=== PATIENT | female | born 1965 | race Caucasian/White ===

== ENCOUNTER 2018-03-13 08:13 | Observation (INO) | payer OTHER ==
[2018-03-13] MEDS ORDERED: Ondansetron 4 MG Tab.DIS PO ONE (08:29)
[2018-03-13] MEDS ORDERED: Morphine 4 MG/ML Syringe IVPUSH ONE (08:29)
[2018-03-13] MEDS ORDERED: Sodium Chloride 0.9% 1,000 ML IV ONE (08:29)
[2018-03-13] MEDS ORDERED: Sodium Chloride 0.9% 2.5 ML Syringe FLUSH PRN ×2 (08:29→12:34)
[2018-03-13] MEDS ORDERED: Sodium Chloride 0.9% 10 ML Syringe FLUSH PRN ×2 (08:29→12:34)
--- NOTE | 2018-03-13 08:32 | EDM.PDOC ---
ED HPI GENERAL MEDICAL PROBLEM - General Stated Complaint: STOMACH PAIN ISSUES Time Seen by Provider: 03/13/18 08:24 Source of Information: Reports: Patient History Limitations: Reports: No Limitations - History of Present Illness INITIAL COMMENTS - FREE TEXT/NARRATIVE: History of present illness: []Patient has been having upper abdominal pain radiating around her whole trunk is worse on the right side for the last month 1-2 months. It's been intermittent and she has gone to her doctor is Esequiel for evaluation. She was told that if the pain recurs she is to go to a doctor. Sensation is here visiting her who works in the [employer]. She awoke this morning and ate breakfast before taking her diabetic meds and then developed the pain. She is nauseated and has had some fevers and chills. She denies any diarrhea. Patient has had her tubes tied she currently does have her gallbladder. Review of systems: As per history of present illness and below otherwise all systems reviewed and negative. Past medical history: As per history of present illness and as reviewed below otherwise noncontributory. Surgical history: As per history of present illness and as reviewed below otherwise noncontributory. Social history: No reported history of drug or alcohol abuse. Family history: As per history of present illness and as reviewed below otherwise noncontributory. Physical exam: General: Well developed, well nourished in NAD HEENT: Atraumatic, normocephalic, pupils reactive, negative for conjunctival pallor or scleral icterus, mucous membranes moist, throat clear, neck supple, nontender, trachea midline. Lungs: Clear to auscultation, breath sounds equal bilaterally, chest nontender. Heart: S1S2, regular, negative for clicks, rubs, or JVD. Abdomen: Soft, nondistended, tender upper abdomen or severe on the right without rebound or guarding. Negative for masses or hepatosplenomegaly. Negative for costovertebral tenderness. Pelvis: Stable nontender. Genitourinary: Deferred. Rectal: Deferred. Extremities: Atraumatic, negative for cords or calf pain. Neurovascular unremarkable. Neuro: Awake, alert, oriented. Cranial nerves II through XII unremarkable. Cerebellum unremarkable. Motor and sensory unremarkable throughout. Exam nonfocal. Diagnostics: CBC normal, chemistries normal, LFTs AST and ALTs slightly elevated at 140/120, UA negative, negative, CT scan abdomen shows acute cholecystitis Therapeutics: []IV hydration, Zosyn given in the ED Impression: []Acute cholecystitis Plan: []Dr. Springer consulted she is admitting this patient for IV antibiotics and observation. Definitive disposition and diagnosis as appropriate pending reevaluation and review of above. - Related Data Allergies Allergy/AdvReac Type Severity Reaction Status Date / Time No Known Allergies Allergy Verified 03/13/18 08:39 Home Meds: Home Meds Levothyroxine 125 mcg PO ACBREAKFAST 03/13/18 [History] Lisinopril [Zestril] 40 mg PO DAILY 03/13/18 [History] Metoprolol Tartrate [Lopressor] 50 mg PO BID 03/13/18 [History] metFORMIN HCl [Metformin HCl ER] 2 tab PO BID 03/13/18 [History] ED ROS GENERAL - Review of Systems Review Of Systems: See Below (See history of present illness) ED EXAM, GI/ABD - Physical Exam Exam: See Below (See history of present illness) Course - Vital Signs Last Recorded V/S: Last Vital Signs Temp 98.2 F 03/13/18 15:36 Pulse 61 03/13/18 15:36 Resp 16 03/13/18 15:36 BP 173/93 H 03/13/18 15:36 Pulse Ox 97 03/13/18 15:36 - Orders/Labs/Meds Orders: Active Orders 24 hr Category Date Time Status Patient Status [ADT] Routine ADT 03/13/18 12:34 Active Intake and Output [RC] Q12HR Care 03/13/18 12:39 Active RT Incentive Spirometry [RC] ASDIRECTED Care 03/13/18 12:34 Active Up ad Mis [RC] ASDIRECTED Care 03/13/18 12:34 Active Vital Signs [RC] PER UNIT ROUTINE Care 03/13/18 12:34 Active HCG QUALITATIVE,URINE [URCHEM] Stat Lab 03/13/18 08:45 Ordered UA W/MICROSCOPIC [URIN] Stat Lab 03/13/18 08:45 Ordered Acetaminophen/oxyCODONE [Percocet 325-5 MG] Med 03/13/18 12:34 Active 2 tab PO Q4H PRN Lactated Ringers [Ringers, Lactated] 1,000 ml Med 03/13/18 12:45 Active IV ASDIRECTED Morphine Med 03/13/18 12:34 Active 4 mg IVPUSH Q1H PRN Omeprazole Med 03/14/18 07:30 Active 20 mg PO ACBREAKFAST Ondansetron [Zofran] Med 03/13/18 12:34 Active 4 mg IVPUSH Q6H PRN Piperacillin/Tazobactam [Piperacil-Tazobact] 3.375 gm Med 03/13/18 18:00 Active Sodium Chloride 0.9% [Normal Saline] 50 ml IV Q8H Sodium Chloride 0.9% [Saline Flush] Med 03/13/18 08:29 Active 10 ml FLUSH ASDIRECTED PRN Sodium Chloride 0.9% [Saline Flush] Med 03/13/18 12:34 Active 10 ml FLUSH ASDIRECTED PRN Sodium Chloride 0.9% [Saline Flush] Med 03/13/18 08:29 Active 2.5 ml FLUSH ASDIRECTED PRN Sodium Chloride 0.9% [Saline Flush] Med 03/13/18 12:34 Active 2.5 ml FLUSH ASDIRECTED PRN diphenhydrAMINE [Benadryl] Med 03/13/18 12:34 Active 25 mg IVPUSH Q4H PRN Peripheral IV Insertion Adult [OM.PC] Urgent Oth 03/13/18 12:34 Ordered Saline Lock Insert [OM.PC] Stat Oth 03/13/18 08:29 Ordered Resuscitation Status Routine Resus Stat 03/13/18 12:34 Ordered Medication Orders Hydrocodone Bitart/Acetaminophen ([place] 325-5 Mg) 2 tab PO Q4H PRN PRN Reason: Abdominal Pain Diphenhydramine HCl (Benadryl) 25 mg IVPUSH Q4H PRN PRN Reason: Itching Lactated Ringer's (Ringers, Lactated) 1,000 mls @ 125 mls/hr IV ASDIRECTED CHILANGO Last Admin: 03/13/18 12:57 Dose: 125 mls/hr Piperacillin Sod/Tazobactam (Sod 3.375 gm/ Sodium Chloride) 50 mls @ 100 mls/ hr IV Q8H CHILANGO Last Admin: 03/13/18 17:36 Dose: 100 mls/hr Morphine Sulfate (Morphine) 4 mg IVPUSH Q1H PRN PRN Reason: Pain (severe 7-10) Last Admin: 03/13/18 17:55 Dose: 4 mg Omeprazole (Omeprazole) 20 mg PO ACBREAKFAST CHILANGO Ondansetron HCl (Zofran) 4 mg IVPUSH Q6H PRN PRN Reason: Nausea/Vomiting Ondansetron HCl (Zofran Odt) 4 mg PO Q6H PRN PRN Reason: Nausea/Vomiting Last Admin: 03/13/18 17:35 Dose: 4 mg Oxycodone/Acetaminophen (Percocet 325-5 Mg) 2 tab PO Q4H PRN PRN Reason: Pain (moderate 4-6) Sodium Chloride (Saline Flush) 10 ml FLUSH ASDIRECTED PRN PRN Reason: Keep Vein Open Sodium Chloride (Saline Flush) 2.5 ml FLUSH ASDIRECTED PRN PRN Reason: Keep Vein Open Sodium Chloride (Saline Flush) 10 ml FLUSH ASDIRECTED PRN PRN Reason: Keep Vein Open Sodium Chloride (Saline Flush) 2.5 ml FLUSH ASDIRECTED PRN PRN Reason: Keep Vein Open Labs: Laboratory Tests 03/13/18 03/13/18 03/13/18 Range/Units 08:45 08:45 09:07 WBC 4.87 (4.0-11.0) K/uL RBC 4.54 (4.30-5.90) M/uL Hgb 13.7 (12.0-16.0) g/dL Hct 39.4 (36.0-46.0) % MCV 86.8 (80.0-98.0) fL MCH 30.2 (27.0-32.0) pg MCHC 34.8 (31.0-37.0) g/dL RDW Std Deviation 40.2 (28.0-62.0) fl RDW Coeff of Randal 13 (11.0-15.0) % Plt Count 209 (150-400) K/uL MPV 10.90 (7.40-12.00) fL Neut % (Auto) 52.6 (48.0-80.0) % Lymph % (Auto) 33.9 (16.0-40.0) % [place] % (Auto) 11.5 (0.0-15.0) % Eos % (Auto) 1.6 (0.0-7.0) % Baso % (Auto) 0.4 (0.0-1.5) % Neut # (Auto) 2.6 (1.4-5.7) K/uL Lymph # (Auto) 1.7 (0.6-2.4) K/uL [place] # (Auto) 0.6 (0.0-0.8) K/uL Eos # (Auto) 0.1 (0.0-0.7) K/uL Baso # (Auto) 0.0 (0.0-0.1) K/uL Nucleated RBC % 0.0 /100WBC Nucleated RBCs # 0 K/uL Sodium (136-145) mmol/L Potassium (3.5-5.1) mmol/L Chloride (98-107) mmol/L Carbon Dioxide (21.0-32.0) mmol/L BUN (7.0-18.0) mg/dL Creatinine (0.6-1.0) mg/dL Est Cr Clr Drug Dosing mL/min Estimated GFR (MDRD) ml/min Glucose (74-106) mg/dL Calcium (8.5-10.1) mg/dL Total Bilirubin (0.2-1.0) mg/dL AST (15-37) IU/L ALT (14-63) IU/L Alkaline Phosphatase (46-116) U/L Total Protein (6.4-8.2) g/dL Albumin (3.4-5.0) g/dL Globulin (2.0-3.5) g/dL Albumin/Globulin Ratio (1.3-2.8) Lipase (73-393) U/L Urine Color YELLOW Urine Appearance CLEAR Urine pH 5.5 (5.0-8.0) Ur Specific [place] 1.010 (1.001-1.035) Urine Protein NEGATIVE (NEGATIVE) mg/dL Urine Glucose (UA) NEGATIVE (NEGATIVE) mg/dL Urine Ketones NEGATIVE (NEGATIVE) mg/dL Urine Occult Blood NEGATIVE (NEGATIVE) Urine Nitrite NEGATIVE (NEGATIVE) Urine Bilirubin NEGATIVE (NEGATIVE) Urine Urobilinogen 0.2 (<2.0) EU/dL Ur Leukocyte Esterase NEGATIVE (NEGATIVE) Urine RBC 0-1 (0-2/HPF) Urine WBC 0-2 (0-5/HPF) Ur Epithelial Cells MODERATE (NONE-FEW) Amorphous Sediment MODERATE (NEGATIVE) Urine Bacteria FEW (NEGATIVE) Urine HCG, Qual NEGATIVE (NEGATIVE) 03/13/18 Range/Units 09:07 WBC (4.0-11.0) K/uL RBC (4.30-5.90) M/uL Hgb (12.0-16.0) g/dL Hct (36.0-46.0) % MCV (80.0-98.0) fL MCH (27.0-32.0) pg MCHC (31.0-37.0) g/dL RDW Std Deviation (28.0-62.0) fl RDW Coeff of Randal (11.0-15.0) % Plt Count (150-400) K/uL MPV (7.40-12.00) fL Neut % (Auto) (48.0-80.0) % Lymph % (Auto) (16.0-40.0) % [place] % (Auto) (0.0-15.0) % Eos % (Auto) (0.0-7.0) % Baso % (Auto) (0.0-1.5) % Neut # (Auto) (1.4-5.7) K/uL Lymph # (Auto) (0.6-2.4) K/uL [place] # (Auto) (0.0-0.8) K/uL Eos # (Auto) (0.0-0.7) K/uL Baso # (Auto) (0.0-0.1) K/uL Nucleated RBC % /100WBC Nucleated RBCs # K/uL Sodium 143 (136-145) mmol/L Potassium 4.6 (3.5-5.1) mmol/L Chloride 107 (98-107) mmol/L Carbon Dioxide 24.7 (21.0-32.0) mmol/L BUN 12 (7.0-18.0) mg/dL Creatinine 0.9 (0.6-1.0) mg/dL Est Cr Clr Drug Dosing 75.44 mL/min Estimated GFR (MDRD) > 60.0 ml/min Glucose 130 H (74-106) mg/dL Calcium 9.9 (8.5-10.1) mg/dL Total Bilirubin 0.8 (0.2-1.0) mg/dL AST 164 H (15-37) IU/L ALT 140 H (14-63) IU/L Alkaline Phosphatase 62 (46-116) U/L Total Protein 7.5 (6.4-8.2) g/dL Albumin 4.3 (3.4-5.0) g/dL Globulin 3.2 (2.0-3.5) g/dL Albumin/Globulin Ratio 1.3 (1.3-2.8) Lipase 214 (73-393) U/L Urine Color Urine Appearance Urine pH (5.0-8.0) Ur Specific [place] (1.001-1.035) Urine Protein (NEGATIVE) mg/dL Urine Glucose (UA) (NEGATIVE) mg/dL Urine Ketones (NEGATIVE) mg/dL Urine Occult Blood (NEGATIVE) Urine Nitrite (NEGATIVE) Urine Bilirubin (NEGATIVE) Urine Urobilinogen (<2.0) EU/dL Ur Leukocyte Esterase (NEGATIVE) Urine RBC (0-2/HPF) Urine WBC (0-5/HPF) Ur Epithelial Cells (NONE-FEW) Amorphous Sediment (NEGATIVE) Urine Bacteria (NEGATIVE) Urine HCG, Qual (NEGATIVE) Meds: Medications Generic Name Dose Route Start Last Admin Trade Name Freq PRN Reason Stop Dose Admin Hydrocodone Bitart/Acetaminophen 2 tab 03/13/18 17:10 [place] 325-5 Mg PO Q4H PRN Abdominal Pain Diphenhydramine HCl 25 mg 03/13/18 12:34 Benadryl IVPUSH Q4H PRN Itching Lactated Ringer's 1,000 mls @ 125 mls/hr 03/13/18 12:45 03/13/18 12:57 Ringers, Lactated IV 125 mls/hr ASDIRECTED CHILANGO Administration Piperacillin Sod/Tazobactam 50 mls @ 100 mls/hr 03/13/18 18:00 03/13/18 17:36 Sod 3.375 gm/ Sodium Chloride IV 100 mls/hr Q8H CHILANGO Administration Morphine Sulfate 4 mg 03/13/18 12:34 03/13/18 17:55 Morphine IVPUSH 4 mg Q1H PRN Administration Pain (severe 7-10) Omeprazole 20 mg 03/14/18 07:30 Omeprazole PO ACBREAKFAST CHILANGO Ondansetron HCl 4 mg 03/13/18 12:34 Zofran IVPUSH Q6H PRN Nausea/Vomiting Ondansetron HCl 4 mg 03/13/18 17:10 03/13/18 17:35 Zofran Odt PO 4 mg Q6H PRN Administration Nausea/Vomiting Oxycodone/Acetaminophen 2 tab 03/13/18 12:34 Percocet 325-5 Mg PO Q4H PRN Pain (moderate 4-6) Sodium Chloride 10 ml 03/13/18 08:29 Saline Flush FLUSH ASDIRECTED PRN Keep Vein Open Sodium Chloride 2.5 ml 03/13/18 08:29 Saline Flush FLUSH ASDIRECTED PRN Keep Vein Open Sodium Chloride 10 ml 03/13/18 12:34 Saline Flush FLUSH ASDIRECTED PRN Keep Vein Open Sodium Chloride 2.5 ml 03/13/18 12:34 Saline Flush FLUSH ASDIRECTED PRN Keep Vein Open Discontinued Medications Generic Name Dose Route Start Last Admin Trade Name Freq PRN Reason Stop Dose Admin Sodium Chloride 1,000 mls @ 999 mls/hr 03/13/18 08:29 03/13/18 09:16 Normal Saline IV 03/13/18 09:29 999 mls/hr .Bolus ONE Administration Piperacillin Sod/Tazobactam 100 mls @ 100 mls/hr 03/13/18 11:57 03/13/18 12: 24 Sod 4.5 gm/ Sodium Chloride IV 03/13/18 12:56 100 mls/hr ONETIME ONE Administration Iopamidol 85 ml 03/13/18 11:28 03/13/18 11:29 Isovue-370 (76%) IVPUSH 03/13/18 11:29 85 ml ONETIME ONE Administration Morphine Sulfate 4 mg 03/13/18 08:29 03/13/18 09:20 Morphine IVPUSH 03/13/18 08:30 4 mg ONETIME ONE Administration Morphine Sulfate Confirm 03/13/18 08:49 03/13/18 09:20 Morphine Administered 03/13/18 08:50 Not Given Dose 4 mg .ROUTE .STK-MED ONE Ondansetron HCl 4 mg 03/13/18 08:29 03/13/18 09:18 Zofran Odt PO 03/13/18 08:30 4 mg ONETIME ONE Administration Departure - Departure Time of Disposition: 13:30 Disposition: Refer to Observation Condition: Good Clinical Impression: Acute cholecystitis - Discharge Information - My Orders Last 24 Hours: My Active Orders 03/13/18 08:29 Sodium Chloride 0.9% [Saline Flush] 10 ml FLUSH ASDIRECTED PRN Sodium Chloride 0.9% [Saline Flush] 2.5 ml FLUSH ASDIRECTED PRN Saline Lock Insert [OM.PC] Stat 03/13/18 08:45 HCG QUALITATIVE,URINE [URCHEM] Stat UA W/MICROSCOPIC [URIN] Stat - Assessment/Plan Last 24 Hours: My Active Orders 03/13/18 08:29 Sodium Chloride 0.9% [Saline Flush] 10 ml FLUSH ASDIRECTED PRN Sodium Chloride 0.9% [Saline Flush] 2.5 ml FLUSH ASDIRECTED PRN Saline Lock Insert [OM.PC] Stat 03/13/18 08:45 HCG QUALITATIVE,URINE [URCHEM] Stat UA W/MICROSCOPIC [URIN] Stat
[2018-03-13] MEDS ORDERED: Morphine 2 MG/ML Syringe ONE (08:49)
[2018-03-13 09:49] LABS: CHLORIDE,CL 107 mmol/L (98-107); SODIUM,NA 143 mmol/L (136-145)
[2018-03-13] MEDS ORDERED: Iopamidol 755 Mg/ML 100 ML Bottle IVPUSH ONE (11:28)
--- NOTE | 2018-03-13 11:44 | CT ---
CT of the abdomen and pelvis with contrast. HISTORY: Pain TECHNIQUE: Axial CT images were obtained of the abdomen and pelvis following administration of 85 mL of Isovue-370 in the right hand without complication. Coronal and sagittal reconstructions obtained. FINDINGS: The lung bases are clear, no pleural effusion. A few tiny hypodensities within the liver, too small for characterize, likely representing cysts. The spleen is normal. Adrenal glands and pancreas appear unremarkable. Mild prominence of the intra and extrahepatic biliary ducts with the common bile duct measuring up to 7 mm. There is mild gallbladder wall thickening and a trace pericholecystic stranding. There is a possible tiny filling defect within the cystic duct. The kidneys enhance and function symmetrically without evidence of obstructive uropathy. Renal cysts. The large and small bowel are normal in caliber without evidence of obstruction. No focal pericolonic inflammation or stranding. The appendix is normal. No pelvic lymphadenopathy or free pelvic fluid. T he uterus is heterogeneous likely containing a 2.9 x 3.8 posterior uterine fibroid. Urinary bladder i s normal. No suspicious osseous abnormalities identified. IMPRESSION: 1. Gallbladder wall thickening and pericholecystic stranding within possible tiny gallstone within th e cystic duct. Correlate clinically for acute cholecystitis. 2. Mild prominence of the anterior and extrahepatic biliary ducts also noted. 3. Uterine fibroids.
[2018-03-13] MEDS ORDERED: Piperacillin/Tazobactam 4.5 GM in Sodium Chloride 0.9% 100 ML IV ONE (11:57)
[2018-03-13] MEDS ORDERED: Ondansetron 4 MG/2 ML SDV IVPUSH PRN (12:34)
[2018-03-13] MEDS ORDERED: Morphine 4 MG/ML Syringe IVPUSH PRN (12:34)
[2018-03-13] MEDS ORDERED: Acetaminophen/oxyCODONE 325-5 MG Tab PO PRN (12:34)
[2018-03-13] MEDS ORDERED: diphenhydrAMINE 50 MG/ML SDV IVPUSH PRN (12:34)
[2018-03-13] MEDS: Lactated Ringers 1,000 ML IV SCH ×2 (12:57→21:31)
--- NOTE | 2018-03-13 13:12 | US ---
EXAMINATION: Right upper quadrant ultrasound HISTORY: Acute cholecystitis COMPARISON: CT from the same day TECHNIQUE: Grayscale and color Doppler images obtained of the right upper quadrant. FINDINGS: Visualized pancreas appears normal. Overall the liver is normal in contour and echotexture. There are a few small hyperechoic foci within the liver measuring up to 1.3 cm consistent with small hemangiomas. The gallbladder is partially contracted and overall not optimally evaluated. The gallbl adder wall measures up to 3 mm no definite shadowing stone identified. Common bile duct measures 2 mm . Right kidney measures 10.1 cm [id number] without evidence of hydronephrosis. IMPRESSION: 1. Gallbladder wall thickness is borderline at 3 mm however there is difficult to fully characterize due to the partially contracted. 2. Probable hemangiomas noted within the liver.
--- NOTE | 2018-03-13 13:51 | PCM.HP ---
H&P History of Present Illness - General Date of Service: 03/13/18 Admit Problem/Dx: Admission Diagnosis/Problem Admission Diagnosis/Problem Acute cholecystitis Source of Information: Patient History Limitations: Reports: No Limitations - History of Present Illness Initial Comments - Free Text/Narative: Patient is a 52 year old female who has been having intermittent epigastric and RUQ pain for 1-2 months. Last saturday she ate a meal and had RUQ pain for six hours afterwards. The pain resolved and she didnt have any further pain until this morning. She had acute RUQ pain after breakfast. This radiated around her upper abdomen and to her back. She had nausea but did not vomit. She felt diaphoretic. Her CBC was normal. Her AST and ALT were mildly elevated. A CT of the abdomen showed questionable thickened GB wall and romeo-cholecystic fluid. There was a gallstone in the neck of the GB. The radiologist said to clinically correlate for acute cholecystitis. She had a RUQ US that showed a 3mm gallbladder wall with no fluid around it. The gallbladder was small and contracted. The CBD was 2mm in size. The CT showed questionable dilation. She received a dose of IV morphine with resolution of her symptoms and she is now hungry. - Related Data Allergies/Adverse Reactions: Allergies Allergy/AdvReac Type Severity Reaction Status Date / Time No Known Allergies Allergy Verified 03/13/18 08:39 Home Medications: Home Meds Levothyroxine 125 mcg PO ACBREAKFAST 03/13/18 [History] Lisinopril [Zestril] 40 mg PO DAILY 03/13/18 [History] Metoprolol Tartrate [Lopressor] 50 mg PO BID 03/13/18 [History] metFORMIN HCl [Metformin HCl ER] 2 tab PO BID 03/13/18 [History] Past Medical History Cardiovascular History: Reports: Hypertension, Other (See Below) Other Cardiovascular History: SVT Respiratory History: Reports: Other (See Below) (20-30 year smoker) Endocrine/Metabolic History: Reports: Diabetes, Type II, Hypothyroidism - Past Surgical History Female Surgical History: Reports: Tubal Ligation Social & Family History - Family History Family Medical History: Noncontributory - Tobacco Use Smoking Status *Q: Former Smoker Used Tobacco, but Quit: Yes Month/Year Tobacco Last Used: 2 months ago - Recreational Drug Use Recreational Drug Use: No H&P Review of Systems - Review of Systems: Review Of Systems: ROS reveals no pertinent complaints other than HPI. Exam - Exam Exam: See Below - Vital Signs Vital Signs: Last Vital Signs Temp 36.2 C 03/13/18 08:41 Pulse 56 L 03/13/18 11:30 Resp 16 03/13/18 11:30 BP 178/85 H 03/13/18 11:30 Pulse Ox 99 03/13/18 11:30 Weight: 77.111 kg - Exam General: Alert, Oriented HEENT: Conjunctiva Clear, EACs Clear, Mucosa Moist & [place], Posterior Pharynx Clear, Pupils Equal Neck: Supple, Trachea Midline Lungs: Clear to Auscultation, Normal Respiratory Effort Cardiovascular: Regular Rate, Regular Rhythm GI/Abdominal Exam: Soft, Non-Tender, No Distention, No Mass, Other (Negative falk's sign ) Extremities: Normal Inspection, Normal Range of Motion - Patient Data Lab Results Last 24 hrs: Laboratory Results - last 24 hr 03/13/18 03/13/18 03/13/18 Range/Units 08:45 08:45 09:07 WBC 4.87 (4.0-11.0) K/uL RBC 4.54 (4.30-5.90) M/uL Hgb 13.7 (12.0-16.0) g/dL Hct 39.4 (36.0-46.0) % MCV 86.8 (80.0-98.0) fL MCH 30.2 (27.0-32.0) pg MCHC 34.8 (31.0-37.0) g/dL RDW Std Deviation 40.2 (28.0-62.0) fl RDW Coeff of Randal 13 (11.0-15.0) % Plt Count 209 (150-400) K/uL MPV 10.90 (7.40-12.00) fL Neut % (Auto) 52.6 (48.0-80.0) % Lymph % (Auto) 33.9 (16.0-40.0) % Divide % (Auto) 11.5 (0.0-15.0) % Eos % (Auto) 1.6 (0.0-7.0) % Baso % (Auto) 0.4 (0.0-1.5) % Neut # (Auto) 2.6 (1.4-5.7) K/uL Lymph # (Auto) 1.7 (0.6-2.4) K/uL [place] # (Auto) 0.6 (0.0-0.8) K/uL Eos # (Auto) 0.1 (0.0-0.7) K/uL Baso # (Auto) 0.0 (0.0-0.1) K/uL Nucleated RBC % 0.0 /100WBC Nucleated RBCs # 0 K/uL Sodium (136-145) mmol/L Potassium (3.5-5.1) mmol/L Chloride (98-107) mmol/L Carbon Dioxide (21.0-32.0) mmol/L BUN (7.0-18.0) mg/dL Creatinine (0.6-1.0) mg/dL Est Cr Clr Drug Dosing mL/min Estimated GFR (MDRD) ml/min Glucose (74-106) mg/dL Calcium (8.5-10.1) mg/dL Total Bilirubin (0.2-1.0) mg/dL AST (15-37) IU/L ALT (14-63) IU/L Alkaline Phosphatase (46-116) U/L Total Protein (6.4-8.2) g/dL Albumin (3.4-5.0) g/dL Globulin (2.0-3.5) g/dL Albumin/Globulin Ratio (1.3-2.8) Lipase (73-393) U/L Urine Color YELLOW Urine Appearance CLEAR Urine pH 5.5 (5.0-8.0) Ur Specific [place] 1.010 (1.001-1.035) Urine Protein NEGATIVE (NEGATIVE) mg/dL Urine Glucose (UA) NEGATIVE (NEGATIVE) mg/dL Urine Ketones NEGATIVE (NEGATIVE) mg/dL Urine Occult Blood NEGATIVE (NEGATIVE) Urine Nitrite NEGATIVE (NEGATIVE) Urine Bilirubin NEGATIVE (NEGATIVE) Urine Urobilinogen 0.2 (<2.0) EU/dL Ur Leukocyte Esterase NEGATIVE (NEGATIVE) Urine RBC 0-1 (0-2/HPF) Urine WBC 0-2 (0-5/HPF) Ur Epithelial Cells MODERATE (NONE-FEW) Amorphous Sediment MODERATE (NEGATIVE) Urine Bacteria FEW (NEGATIVE) Urine HCG, Qual NEGATIVE (NEGATIVE) 03/13/18 Range/Units 09:07 WBC (4.0-11.0) K/uL RBC (4.30-5.90) M/uL Hgb (12.0-16.0) g/dL Hct (36.0-46.0) % MCV (80.0-98.0) fL MCH (27.0-32.0) pg MCHC (31.0-37.0) g/dL RDW Std Deviation (28.0-62.0) fl RDW Coeff of Randal (11.0-15.0) % Plt Count (150-400) K/uL MPV (7.40-12.00) fL Neut % (Auto) (48.0-80.0) % Lymph % (Auto) (16.0-40.0) % Divide % (Auto) (0.0-15.0) % Eos % (Auto) (0.0-7.0) % Baso % (Auto) (0.0-1.5) % Neut # (Auto) (1.4-5.7) K/uL Lymph # (Auto) (0.6-2.4) K/uL [place] # (Auto) (0.0-0.8) K/uL Eos # (Auto) (0.0-0.7) K/uL Baso # (Auto) (0.0-0.1) K/uL Nucleated RBC % /100WBC Nucleated RBCs # K/uL Sodium 143 (136-145) mmol/L Potassium 4.6 (3.5-5.1) mmol/L Chloride 107 (98-107) mmol/L Carbon Dioxide 24.7 (21.0-32.0) mmol/L BUN 12 (7.0-18.0) mg/dL Creatinine 0.9 (0.6-1.0) mg/dL Est Cr Clr Drug Dosing 75.44 mL/min Estimated GFR (MDRD) > 60.0 ml/min Glucose 130 H (74-106) mg/dL Calcium 9.9 (8.5-10.1) mg/dL Total Bilirubin 0.8 (0.2-1.0) mg/dL AST 164 H (15-37) IU/L ALT 140 H (14-63) IU/L Alkaline Phosphatase 62 (46-116) U/L Total Protein 7.5 (6.4-8.2) g/dL Albumin 4.3 (3.4-5.0) g/dL Globulin 3.2 (2.0-3.5) g/dL Albumin/Globulin Ratio 1.3 (1.3-2.8) Lipase 214 (73-393) U/L Urine Color Urine Appearance Urine pH (5.0-8.0) Ur Specific [place] (1.001-1.035) Urine Protein (NEGATIVE) mg/dL Urine Glucose (UA) (NEGATIVE) mg/dL Urine Ketones (NEGATIVE) mg/dL Urine Occult Blood (NEGATIVE) Urine Nitrite (NEGATIVE) Urine Bilirubin (NEGATIVE) Urine Urobilinogen (<2.0) EU/dL Ur Leukocyte Esterase (NEGATIVE) Urine RBC (0-2/HPF) Urine WBC (0-5/HPF) Ur Epithelial Cells (NONE-FEW) Amorphous Sediment (NEGATIVE) Urine Bacteria (NEGATIVE) Urine HCG, Qual (NEGATIVE) Result Diagrams: 03/13/18 09:07 03/13/18 09:07 - Problem List (1) Biliary colic SNOMED Code(s): 79495120 ICD Code: K80.50 - CALCULUS OF BILE DUCT W/O CHOLANGITIS OR CHOLECYST W/O OBST Status: Acute Problem List Initiated/Reviewed/Updated: Yes Orders Last 24hrs: Active Orders 24 hr Category Date Time Status Patient Status [ADT] Routine ADT 03/13/18 12:34 Active Intake and Output [RC] QSHIFT Care 03/13/18 12:39 Active RT Incentive Spirometry [RC] ASDIRECTED Care 03/13/18 12:34 Active Up ad Mis [RC] ASDIRECTED Care 03/13/18 12:34 Active Vital Signs [RC] PER UNIT ROUTINE Care 03/13/18 12:34 Active HCG QUALITATIVE,URINE [URCHEM] Stat Lab 03/13/18 08:45 Ordered UA W/MICROSCOPIC [URIN] Stat Lab 03/13/18 08:45 Ordered Acetaminophen/oxyCODONE [Percocet 325-5 MG] Med 03/13/18 12:34 Active 2 tab PO Q4H PRN Lactated Ringers [Ringers, Lactated] 1,000 ml Med 03/13/18 12:45 Active IV ASDIRECTED Morphine Med 03/13/18 12:34 Active 4 mg IVPUSH Q1H PRN Omeprazole Med 03/14/18 07:30 Active 20 mg PO ACBREAKFAST Ondansetron [Zofran] Med 03/13/18 12:34 Active 4 mg IVPUSH Q6H PRN Piperacillin/Tazobactam [Piperacil-Tazobact] 3.375 gm Med 03/13/18 18:00 Active Sodium Chloride 0.9% [Normal Saline] 50 ml IV Q8H Sodium Chloride 0.9% [Saline Flush] Med 03/13/18 08:29 Active 10 ml FLUSH ASDIRECTED PRN Sodium Chloride 0.9% [Saline Flush] Med 03/13/18 12:34 Active 10 ml FLUSH ASDIRECTED PRN Sodium Chloride 0.9% [Saline Flush] Med 03/13/18 08:29 Active 2.5 ml FLUSH ASDIRECTED PRN Sodium Chloride 0.9% [Saline Flush] Med 03/13/18 12:34 Active 2.5 ml FLUSH ASDIRECTED PRN diphenhydrAMINE [Benadryl] Med 03/13/18 12:34 Active 25 mg IVPUSH Q4H PRN Peripheral IV Insertion Adult [OM.PC] Urgent Oth 03/13/18 12:34 Ordered Saline Lock Insert [OM.PC] Stat Oth 03/13/18 08:29 Ordered Resuscitation Status Routine Resus Stat 03/13/18 12:34 Ordered Medication Orders Diphenhydramine HCl (Benadryl) 25 mg IVPUSH Q4H PRN PRN Reason: Itching Lactated Ringer's (Ringers, Lactated) 1,000 mls @ 125 mls/hr IV ASDIRECTED [facility] Last Admin: 03/13/18 12:57 Dose: 125 mls/hr Piperacillin Sod/Tazobactam (Sod 3.375 gm/ Sodium Chloride) 50 mls @ 100 mls/ hr IV Q8H [facility] Morphine Sulfate (Morphine) 4 mg IVPUSH Q1H PRN PRN Reason: Pain (severe 7-10) Omeprazole (Omeprazole) 20 mg PO ACBREAKFAST [facility] Ondansetron HCl (Zofran) 4 mg IVPUSH Q6H PRN PRN Reason: Nausea/Vomiting Oxycodone/Acetaminophen (Percocet 325-5 Mg) 2 tab PO Q4H PRN PRN Reason: Pain (moderate 4-6) Sodium Chloride (Saline Flush) 10 ml FLUSH ASDIRECTED PRN PRN Reason: Keep Vein Open Sodium Chloride (Saline Flush) 2.5 ml FLUSH ASDIRECTED PRN PRN Reason: Keep Vein Open Sodium Chloride (Saline Flush) 10 ml FLUSH ASDIRECTED PRN PRN Reason: Keep Vein Open Sodium Chloride (Saline Flush) 2.5 ml FLUSH ASDIRECTED PRN PRN Reason: Keep Vein Open Assessment/Plan Comment:: Patient appears to be having biliary colic due to symptomatic cholelithiasis. She has no RUQ pain and her US was unremarkable. I will keep her NPO for lunch but advance her diet this evening. If she tolerates a diet without return of her symptoms and her LFTs improve will discharge home tomorrow with close follow up in [place] with a surgeon since that is where she lives. If her pain returns or her labs worsen I will take her tomorrow for a laparoscopic possible open cholecystectomy.
[2018-03-13] MEDS ORDERED: Acetaminophen/HYDROcodone 325-5 MG Tab PO PRN (17:10)
[2018-03-13] MEDS ORDERED: Ondansetron 4 MG Tab.DIS PO PRN (17:10)
[2018-03-13] MEDS: Piperacillin/Tazobactam 3.375 GM in Sodium Chloride 0.9% 50 ML IV SCH (17:36)
--- NOTE | 2018-03-13 18:44 | PCM.SN ---
- Free Text/Narrative Note: I came to check on the patient this evening. Her vital signs have been stable this afternoon, but despite being NPO with IVF and IV abx her pain and nausea have returned. She has not taken anything for it and I encouraged her to take medication. On physical exam she is mildly tender in the RUQ. The decision was made to proceed with cholecystectomy tomorrow. We discussed the laparoscopic and open approaches to cholecystectomy. Should I be unable to perform it safely laparoscopically we will convert to open. We discussed the expected perioperative course. We discussed risks including bleeding infection or damage to surrounding structures. She verbalized understanding and wishes to proceed. She will be added on tomorrow when a room becomes available.
[2018-03-13] MEDS ORDERED: hydrALAZINE 20 MG/ML SDV IVPUSH PRN (23:52)
[2018-03-14] MEDS: Piperacillin/Tazobactam 3.375 GM in Sodium Chloride 0.9% 50 ML IV SCH (01:55)
[2018-03-14] MEDS: Lactated Ringers 1,000 ML IV SCH (06:25)
[2018-03-14] MEDS ORDERED: Omeprazole 20 MG Cap.CR PO SCH (07:30)
[2018-03-14] MEDS ORDERED: Metoprolol Succinate 50 MG Tab.ER PO SCH (09:00)
--- NOTE | 2018-03-14 09:06 | PCM.DCSUM1 ---
Discharge Summary - Hospital Course Free Text/Narrative:: Patient is a 52 year old female who presented with intractable RUQ pain to the ER yesterday. She lives in [place] and was visiting her in [place]. She took her morning medication, ate breakfast, and afterwards developed sharp RUQ. It radiated along her upper abdomen and into her back. The ER physician ordered a CBC and CMP. Her white blood cell count was normal. Her bilirubin was 0.8. Her ALTs and AST were mildly elevated. CT the abdomen and pelvis was performed that showed the followin. Gallbladder wall thickening and pericholecystic stranding with possible tiny gallstone within the cystic duct. Correlate clinically for acute cholecystitis. 2. Mild prominence of the anterior and extrahepatic earlier he docks also noted. 3. Uterine fibroids She was given IV morphine, IV fluids and her pain subsided. When I saw her in the emergency room she had no evidence of Adams sign. She was admitted to the hospital for close monitoring. I made her nothing by mouth, give her IV fluids, and IV Zosyn. I obtained an ultrasound of the right upper quadrant. It showed the following: Visualized pancreas appears normal. Overall the liver is normal in contour and echotexture. There are a few small hyperechoic foci within the liver measuring up to 1.3 cm consistent with small hemangiomas. The gallbladder is partially contracted and overall not optimally evaluated. The gallbladder wall measures up to 3 mm. No definitive shadowing stone identified. Common bile duct measures 2 mm. Right kidney measures 10.1 cm [id number] without evidence of hydronephrosis. Impression: Gallbladder wall thickness is borderline at 3 mm however this is difficult to fully characterize due to the partially contracted gallbladder. I came to see the patient later that evening. Her right upper quadrant pain had returned. She was still nauseated and complained of bandlike pain around her upper abdomen. She was given some IV pain meds and nausea meds with some improvement so I advanced her diet to clears. This morning she continues to have right upper quadrant pain and her bilirubin has increased to 2.6. Her AST has increased to 953 and her ALT is 535. Lipase is pending. Her white blood cell count is 2.3. I'm now concerned that the patient has choledocholithiasis. I do not have the ability to do an intraoperative cholangiogram at this time and this hospital does not have ERCP capabilities. She will need to be transferred to the hospital with better resources. She is from [place] and would like to go back home there to be seen. I spoke to Dr. Moore in the emergency room and [facility]. He is agreed to see the patient and determine the next course of treatment from there. She will be going by private vehicle. - Discharge Data Discharge Date: 03/14/18 Discharge Disposition: Home, Self-Care 01 Condition: Stable - Discharge Diagnosis/Problem(s) (1) Biliary colic SNOMED Code(s): 53379757 ICD Code: K80.50 - CALCULUS OF BILE DUCT W/O CHOLANGITIS OR CHOLECYST W/O OBST Status: Acute Current Visit: No - Patient Instructions Diet: NPO (strict) Activity: Rest and Relax Today Driving: Do Not Drive Showering/Bathing: May Shower - Discharge Plan Home Medications: Home Meds Levothyroxine 125 mcg PO ACBREAKFAST 03/13/18 [History] Lisinopril [Zestril] 40 mg PO DAILY 03/13/18 [History] Metoprolol Tartrate [Lopressor] 50 mg PO BID 03/13/18 [History] metFORMIN HCl [Metformin HCl ER] 2 tab PO BID 03/13/18 [History] Patient Handouts: Cholelithiasis, [id number] Referrals: [facility] [Outside] - Discharge Summary/Plan Comment DC Time >30 min.: Yes (45 minutes ) - General Info Date of Service: 03/14/18 - Review of Systems General: Reports: Malaise Pulmonary: Reports: No Symptoms Cardiovascular: Reports: No Symptoms Gastrointestinal: Reports: Abdominal Pain (RUQ), Other (No murphys sign ) - Patient Data Vitals - Most Recent: Last Vital Signs Temp 36.7 C 03/14/18 05:00 Pulse 61 03/14/18 05:00 Resp 18 03/14/18 05:00 BP 167/85 H 03/14/18 05:00 Pulse Ox 96 03/14/18 05:00 Weight - Most Recent: 77.111 kg I&O - Last 24 hours: Intake & Output 03/13/18 03/14/18 03/14/18 22:59 06:59 14:59 Intake Total 1250 Output Total 500 Balance 750 Lab Results - Last 24 hrs: Laboratory Results - last 24 hr 03/13/18 03/13/18 03/13/18 Range/Units 08:45 08:45 09:07 WBC 4.87 (4.0-11.0) K/uL RBC 4.54 (4.30-5.90) M/uL Hgb 13.7 (12.0-16.0) g/dL Hct 39.4 (36.0-46.0) % MCV 86.8 (80.0-98.0) fL MCH 30.2 (27.0-32.0) pg MCHC 34.8 (31.0-37.0) g/dL RDW Std Deviation 40.2 (28.0-62.0) fl RDW Coeff of Randal 13 (11.0-15.0) % Plt Count 209 (150-400) K/uL MPV 10.90 (7.40-12.00) fL Neut % (Auto) 52.6 (48.0-80.0) % Lymph % (Auto) 33.9 (16.0-40.0) % [place] % (Auto) 11.5 (0.0-15.0) % Eos % (Auto) 1.6 (0.0-7.0) % Baso % (Auto) 0.4 (0.0-1.5) % Neut # (Auto) 2.6 (1.4-5.7) K/uL Lymph # (Auto) 1.7 (0.6-2.4) K/uL [place] # (Auto) 0.6 (0.0-0.8) K/uL Eos # (Auto) 0.1 (0.0-0.7) K/uL Baso # (Auto) 0.0 (0.0-0.1) K/uL Nucleated RBC % 0.0 /100WBC Nucleated RBCs # 0 K/uL Sodium (136-145) mmol/L Potassium (3.5-5.1) mmol/L Chloride (98-107) mmol/L Carbon Dioxide (21.0-32.0) mmol/L BUN (7.0-18.0) mg/dL Creatinine (0.6-1.0) mg/dL Est Cr Clr Drug Dosing mL/min Estimated GFR (MDRD) ml/min Glucose (74-106) mg/dL POC Glucose (60-110) mg/dL Calcium (8.5-10.1) mg/dL Total Bilirubin (0.2-1.0) mg/dL AST (15-37) IU/L ALT (14-63) IU/L Alkaline Phosphatase (46-116) U/L Total Protein (6.4-8.2) g/dL Albumin (3.4-5.0) g/dL Globulin (2.0-3.5) g/dL Albumin/Globulin Ratio (1.3-2.8) Lipase (73-393) U/L Urine Color YELLOW Urine Appearance CLEAR Urine pH 5.5 (5.0-8.0) Ur Specific [place] 1.010 (1.001-1.035) Urine Protein NEGATIVE (NEGATIVE) mg/dL Urine Glucose (UA) NEGATIVE (NEGATIVE) mg/dL Urine Ketones NEGATIVE (NEGATIVE) mg/dL Urine Occult Blood NEGATIVE (NEGATIVE) Urine Nitrite NEGATIVE (NEGATIVE) Urine Bilirubin NEGATIVE (NEGATIVE) Urine Urobilinogen 0.2 (<2.0) EU/dL Ur Leukocyte Esterase NEGATIVE (NEGATIVE) Urine RBC 0-1 (0-2/HPF) Urine WBC 0-2 (0-5/HPF) Ur Epithelial Cells MODERATE (NONE-FEW) Amorphous Sediment MODERATE (NEGATIVE) Urine Bacteria FEW (NEGATIVE) Urine HCG, Qual NEGATIVE (NEGATIVE) 03/13/18 03/14/18 03/14/18 Range/Units 09:07 00:48 05:54 WBC (4.0-11.0) K/uL RBC (4.30-5.90) M/uL Hgb (12.0-16.0) g/dL Hct (36.0-46.0) % MCV (80.0-98.0) fL MCH (27.0-32.0) pg MCHC (31.0-37.0) g/dL RDW Std Deviation (28.0-62.0) fl RDW Coeff of Randal (11.0-15.0) % Plt Count (150-400) K/uL MPV (7.40-12.00) fL Neut % (Auto) (48.0-80.0) % Lymph % (Auto) (16.0-40.0) % [place] % (Auto) (0.0-15.0) % Eos % (Auto) (0.0-7.0) % Baso % (Auto) (0.0-1.5) % Neut # (Auto) (1.4-5.7) K/uL Lymph # (Auto) (0.6-2.4) K/uL [place] # (Auto) (0.0-0.8) K/uL Eos # (Auto) (0.0-0.7) K/uL Baso # (Auto) (0.0-0.1) K/uL Nucleated RBC % /100WBC Nucleated RBCs # K/uL Sodium 143 (136-145) mmol/L Potassium 4.6 (3.5-5.1) mmol/L Chloride 107 (98-107) mmol/L Carbon Dioxide 24.7 (21.0-32.0) mmol/L BUN 12 (7.0-18.0) mg/dL Creatinine 0.9 (0.6-1.0) mg/dL Est Cr Clr Drug Dosing 75.44 mL/min Estimated GFR (MDRD) > 60.0 ml/min Glucose 130 H (74-106) mg/dL POC Glucose 103 105 (60-110) mg/dL Calcium 9.9 (8.5-10.1) mg/dL Total Bilirubin 0.8 (0.2-1.0) mg/dL AST 164 H (15-37) IU/L ALT 140 H (14-63) IU/L Alkaline Phosphatase 62 (46-116) U/L Total Protein 7.5 (6.4-8.2) g/dL Albumin 4.3 (3.4-5.0) g/dL Globulin 3.2 (2.0-3.5) g/dL Albumin/Globulin Ratio 1.3 (1.3-2.8) Lipase 214 (73-393) U/L Urine Color Urine Appearance Urine pH (5.0-8.0) Ur Specific [place] (1.001-1.035) Urine Protein (NEGATIVE) mg/dL Urine Glucose (UA) (NEGATIVE) mg/dL Urine Ketones (NEGATIVE) mg/dL Urine Occult Blood (NEGATIVE) Urine Nitrite (NEGATIVE) Urine Bilirubin (NEGATIVE) Urine Urobilinogen (<2.0) EU/dL Ur Leukocyte Esterase (NEGATIVE) Urine RBC (0-2/HPF) Urine WBC (0-5/HPF) Ur Epithelial Cells (NONE-FEW) Amorphous Sediment (NEGATIVE) Urine Bacteria (NEGATIVE) Urine HCG, Qual (NEGATIVE) 03/14/18 03/14/18 Range/Units 07:20 07:20 WBC 2.38 L (4.0-11.0) K/uL RBC 4.19 L (4.30-5.90) M/uL Hgb 12.5 (12.0-16.0) g/dL Hct 36.4 (36.0-46.0) % MCV 86.9 (80.0-98.0) fL MCH 29.8 (27.0-32.0) pg MCHC 34.3 (31.0-37.0) g/dL RDW Std Deviation 40.5 (28.0-62.0) fl RDW Coeff of Randal 13 (11.0-15.0) % Plt Count 176 (150-400) K/uL MPV 11.10 (7.40-12.00) fL Neut % (Auto) (48.0-80.0) % Lymph % (Auto) (16.0-40.0) % [place] % (Auto) (0.0-15.0) % Eos % (Auto) (0.0-7.0) % Baso % (Auto) (0.0-1.5) % Neut # (Auto) (1.4-5.7) K/uL Lymph # (Auto) (0.6-2.4) K/uL [place] # (Auto) (0.0-0.8) K/uL Eos # (Auto) (0.0-0.7) K/uL Baso # (Auto) (0.0-0.1) K/uL Nucleated RBC % 0.0 /100WBC Nucleated RBCs # 0 K/uL Sodium 144 (136-145) mmol/L Potassium 3.7 (3.5-5.1) mmol/L Chloride 109 H (98-107) mmol/L Carbon Dioxide 25.4 (21.0-32.0) mmol/L BUN 7 (7.0-18.0) mg/dL Creatinine 1.0 (0.6-1.0) mg/dL Est Cr Clr Drug Dosing 67.89 mL/min Estimated GFR (MDRD) 58.7 ml/min Glucose 129 H (74-106) mg/dL POC Glucose (60-110) mg/dL Calcium 8.8 (8.5-10.1) mg/dL Total Bilirubin 2.6 H (0.2-1.0) mg/dL AST 535 H (15-37) IU/L ALT 953 H (14-63) IU/L Alkaline Phosphatase 106 (46-116) U/L Total Protein 6.5 (6.4-8.2) g/dL Albumin 3.5 (3.4-5.0) g/dL Globulin 3.0 (2.0-3.5) g/dL Albumin/Globulin Ratio 1.2 L (1.3-2.8) Lipase (73-393) U/L Urine Color Urine Appearance Urine pH (5.0-8.0) Ur Specific [place] (1.001-1.035) Urine Protein (NEGATIVE) mg/dL Urine Glucose (UA) (NEGATIVE) mg/dL Urine Ketones (NEGATIVE) mg/dL Urine Occult Blood (NEGATIVE) Urine Nitrite (NEGATIVE) Urine Bilirubin (NEGATIVE) Urine Urobilinogen (<2.0) EU/dL Ur Leukocyte Esterase (NEGATIVE) Urine RBC (0-2/HPF) Urine WBC (0-5/HPF) Ur Epithelial Cells (NONE-FEW) Amorphous Sediment (NEGATIVE) Urine Bacteria (NEGATIVE) Urine HCG, Qual (NEGATIVE) Med Orders - Current: Current Medications Hydrocodone Bitart/Acetaminophen ([place] 325-5 Mg) 2 tab PO Q4H PRN PRN Reason: Abdominal Pain Diphenhydramine HCl (Benadryl) 25 mg IVPUSH Q4H PRN PRN Reason: Itching Hydralazine HCl (Apresoline) 10 mg IVPUSH Q2H PRN PRN Reason: for SBP> 170mmHg Lactated Ringer's (Ringers, Lactated) 1,000 mls @ 125 mls/hr IV ASDIRECTED [facility] Last Admin: 03/14/18 06:25 Dose: 125 mls/hr Piperacillin Sod/Tazobactam (Sod 3.375 gm/ Sodium Chloride) 50 mls @ 100 mls/ hr IV Q8H [facility] Last Admin: 03/14/18 01:55 Dose: 100 mls/hr Metoprolol Succinate (Toprol Xl) 50 mg PO DAILY [facility] Morphine Sulfate (Morphine) 4 mg IVPUSH Q1H PRN PRN Reason: Pain (severe 7-10) Last Admin: 03/13/18 17:55 Dose: 4 mg Omeprazole (Omeprazole) 20 mg PO ACBREAKFAST [facility] Last Admin: 03/14/18 06:37 Dose: 20 mg Ondansetron HCl (Zofran) 4 mg IVPUSH Q6H PRN PRN Reason: Nausea/Vomiting Ondansetron HCl (Zofran Odt) 4 mg PO Q6H PRN PRN Reason: Nausea/Vomiting Last Admin: 03/13/18 17:35 Dose: 4 mg Oxycodone/Acetaminophen (Percocet 325-5 Mg) 2 tab PO Q4H PRN PRN Reason: Pain (moderate 4-6) Sodium Chloride (Saline Flush) 10 ml FLUSH ASDIRECTED PRN PRN Reason: Keep Vein Open Sodium Chloride (Saline Flush) 2.5 ml FLUSH ASDIRECTED PRN PRN Reason: Keep Vein Open Sodium Chloride (Saline Flush) 10 ml FLUSH ASDIRECTED PRN PRN Reason: Keep Vein Open Sodium Chloride (Saline Flush) 2.5 ml FLUSH ASDIRECTED PRN PRN Reason: Keep Vein Open Discontinued Medications Sodium Chloride (Normal Saline) 1,000 mls @ 999 mls/hr IV .Bolus ONE Stop: 03/13/18 09:29 Last Admin: 03/13/18 09:16 Dose: 999 mls/hr Piperacillin Sod/Tazobactam (Sod 4.5 gm/ Sodium Chloride) 100 mls @ 100 mls/hr IV ONETIME ONE Stop: 03/13/18 12:56 Last Admin: 03/13/18 12:24 Dose: 100 mls/hr Iopamidol (Isovue-370 (76%)) 85 ml IVPUSH ONETIME ONE Stop: 03/13/18 11:29 Last Admin: 03/13/18 11:29 Dose: 85 ml Morphine Sulfate (Morphine) 4 mg IVPUSH ONETIME ONE Stop: 03/13/18 08:30 Last Admin: 03/13/18 09:20 Dose: 4 mg Morphine Sulfate (Morphine) Confirm Administered Dose 4 mg .ROUTE .STK-MED ONE Stop: 03/13/18 08:50 Last Admin: 03/13/18 09:20 Dose: Not Given Ondansetron HCl (Zofran Odt) 4 mg PO ONETIME ONE Stop: 03/13/18 08:30 Last Admin: 03/13/18 09:18 Dose: 4 mg - Exam General: Reports: Alert, Oriented HEENT: Reports: Pupils Equal, Pupils Reactive Lungs: Reports: Normal Respiratory Effort Cardiovascular: Reports: Regular Rate GI/Abdominal Exam: Soft, No Distention, No Mass, Other (Tender is RUQ, no adams 's sign ) Extremities: Normal Inspection, Normal Range of Motion Skin: Reports: Warm, Dry, Intact
== END 2018-03-14 11:40 ==
LOC: MW.ED 08:13 → MW.MS 13:48
PROVIDERS: ADMIT Surgery; ATTEND Surgery
DX: K82.8 Other specified diseases of gallbladder (principal); D25.9 Leiomyoma of uterus, unspecified; E11.9 Type 2 diabetes mellitus without complications; E03.9 Hypothyroidism, unspecified; I10 Essential (primary) hypertension; Z79.84 Long term (current) use of oral hypoglycemic drugs; Z79.899 Other long term (current) drug therapy; Z87.891 Personal history of nicotine dependence
CPT/HCPCS: 36415; 74177; 76705; 80053; 81001; 81025; 82962; 83690; 85025; 85027; 96361; 96365; 96375; 99285; A9270; J0360; J2270; J2543; J7030; J7040; J7050; J7120; Q9967; 99283